=== PATIENT | male | born 1925 | race Caucasian/White ===

== ENCOUNTER 2016-03-09 08:35 | Outpatient (CLI) ==
[2015-12-15 13:32] VITALS: BMI 33.1
[2016-03-09 08:52] LABS: BILIRUBIN,URINE Negative (NEGATIVE); KETONES,URINE Negative (NEGATIVE); LEUKOCYTE ESTERASE ,URINE 3+ (NEGATIVE); NITRITE,URINE Positive (NEGATIVE); PROTEIN,URINE 1+ (NEGATIVE); URINE, BLOOD 2+ (NEGATIVE)
[2016-03-09 08:55] LABS: ADD URINE MICROSCOPIC YES
[2016-03-09 09:59] LABS: BACTERIA,URINE 2+ (NOT PRESENT)
== END 2016-03-09 08:36 ==
LOC: NONPT 08:35
PROVIDERS: ATTEND Family Medicine
DX: R30.0 Dysuria (principal)
CPT/HCPCS: 81001; 87086; 87186

== ENCOUNTER 2016-03-28 08:46 | Outpatient (CLI) ==
[2015-12-15 13:32] VITALS: BMI 33.1
[2016-03-28 08:53] LABS: BILIRUBIN,URINE Negative (NEGATIVE); KETONES,URINE Negative (NEGATIVE); LEUKOCYTE ESTERASE ,URINE Negative (NEGATIVE); NITRITE,URINE Negative (NEGATIVE); PROTEIN,URINE Negative (NEGATIVE); URINE, BLOOD Negative (NEGATIVE)
[2016-03-28 09:48] LABS: ADD URINE MICROSCOPIC NO
== END 2016-03-28 08:47 | disposition home or self-care (01) ==
LOC: NONPT 08:46
PROVIDERS: ATTEND Family Medicine
DX: R30.0 Dysuria (principal)
CPT/HCPCS: 81001